=== PATIENT | female | born 1980 | race Caucasian/White ===

== ENCOUNTER 2018-01-17 09:11 | Inpatient (IN) | payer OTHER ==
[2018-01-17 09:21] VITALS: BMI 30.7
[2018-01-17] MEDS ORDERED: ceFAZolin 1 GM in Sodium Chloride 0.9% 100 ML IVPB ONE (09:24)
[2018-01-17] MEDS ORDERED: Oxytocin 30 units/LR 500ML 30 U/500 ML BAG IV ONE (09:42)
[2018-01-17 09:58] VITALS: RESP 18
[2018-01-17 09:59] LABS: BASO % 0.4 % (0.0-2.0); EOS # 0.1 K/uL (0.0-0.7); EOS % 0.5 % (0.0-4.0); HEMOGLOBIN 13.7 g/dL (12.0-16.0); LYMPH # 1.9 K/uL (1.0-4.3); LYMPH % 17.9 % (20.0-40.0); MEAN CELL VOLUME 88.8 fl (81.0-99.0); MEAN CORPUSCULAR HEMOGLOBIN 30.7 pg (27.0-31.0); MEAN CORPUSCULAR HGB CONC 34.5 g/dL (33.0-37.0); MEAN PLATELET VOLUME 8.7 fl (7.2-11.7); MONO # 0.5 K/uL (0.0-0.8); MONO % 4.8 % (0.0-10.0); NEUT # 8.2 K/uL (1.8-7.0); NEUT % 76.4 % (50.0-75.0); NRBC % 0.1 % (0.0-0.0); RBC 4.46 Mil/uL (3.80-5.20); RED CELL DISTRIBUTION WIDTH 13.5 % (11.5-14.5); WHITE BLOOD COUNT 10.8 K/uL (4.8-10.8)
[2018-01-17] MEDS: Lactated Ringer's 1,000 ML IV ONE ×2 (10:13→10:14)
[2018-01-17] MEDS ORDERED: Morphine 1 mg/ml preservative-free Inj(Duramorph) ONE (10:24)
[2018-01-17] MEDS ORDERED: ePHEDrine 50 mg/ml Inj ONE (10:47)
[2018-01-17] MEDS ORDERED: Oxycodone/Acetaminophen 5/325 mg Tab PO PRN (12:13)
[2018-01-17] MEDS ORDERED: Lactated Ringer's 1,000 ML IV SCH (12:15)
[2018-01-17] MEDS: Lactated Ringer's 1,000 ML IV SCH (17:39)
[2018-01-18] MEDS: Oxycodone/Acetaminophen 5/325 mg Tab PO PRN ×5 (01:14→21:35)
[2018-01-18] MEDS: Lactated Ringer's 1,000 ML IV SCH (01:30)
[2018-01-18] MEDS ORDERED: DiphenhydrAMINE 50 mg/ml Inj IVP PRN (02:44)
[2018-01-18] MEDS ORDERED: DiphenhydrAMINE 50 mg/ml Inj ONE (02:53)
[2018-01-18 06:29] LABS: HEMOGLOBIN 12.1 g/dL (12.0-16.0); MEAN CELL VOLUME 89.8 fl (81.0-99.0); MEAN CORPUSCULAR HEMOGLOBIN 30.5 pg (27.0-31.0); RBC 3.96 Mil/uL (3.80-5.20); RED CELL DISTRIBUTION WIDTH 13.5 % (11.5-14.5); WHITE BLOOD COUNT 12.5 K/uL (4.8-10.8)
[2018-01-18] MEDS: Multivitamin With Minerals Tab PO SCH (08:07)
--- NOTE | 2018-01-18 08:55 | OP ---
PROCEDURE DATE: 01/17/18 PREOPERATIVE DIAGNOSIS: Intrauterine at 39 weeks for repeat section. POSTOPERATIVE DIAGNOSIS: Intrauterine at 39 weeks for repeat section. OPERATION PERFORMED: Repeat low flap transverse section via Pfannenstiel skin incision. SURGEON: Rodriguez Swift MD SUBSTATION OPERATOR APPRENTICE: David Casarez DO. He was helpful in delivering the baby, creating exposure, obtaining hemostasis, and closure of the patient. ANESTHESIA: Spinal. ANESTHESIA ADMINISTERED BY: Dr. Lanza. ESTIMATED BLOOD LOSS: 800 mL. URINE OUTPUT: Adams catheter put out approximately 200 mL of clear urine. INTRAVENOUS FLUID INTAKE: The patient received 2100 mL of D5 LR intraoperatively. OPERATIVE FINDINGS: Baby girl, 9 and 9, weighing 3260 gm. Normal uterus, tubes, and ovaries were identified. COMPLICATIONS: There were no complications. DESCRIPTION OF PROCEDURE: After informed consent was obtained, the patient was taken to the operating room where she was given spinal anesthesia. She was then prepped and draped in a normal sterile fashion with the leftward tilt. A Pfannenstiel skin incision was then made with the scalpel and carried down to the underlying layer of fascia. The fascia was nicked in the midline. The fascial incision was then extended laterally with a curved Menchaca scissors. The superior aspect of the fascial incision was then grasped with Stiven clamps, elevated up, and the rectus muscles were dissected off using both sharp and blunt dissection. Attention was then turned to the inferior aspect of the fascial incision, which in a similar fashion was grasped with Stiven clamps, elevated up, and the rectus muscles were dissected off using both sharp and blunt dissection. The rectus muscles were in the midline. The peritoneum identified and entered sharply with the Metzenbaum scissors. The peritoneal incision was then extended superiorly and inferiorly with good visualization of the bladder. The bladder blade was then inserted. The vesicouterine peritoneum was identified, tented up, and entered sharply with the Metzenbaum scissors. The incision was then extended laterally. The bladder flap was created digitally. The bladder blade was then readjusted. A low transverse incision was made with the scalpel. The incision was then extended laterally. The 's head was delivered atraumatically. The nose and mouth were suctioned with DeLee suction trap. The cord was clamped and cut. The was handed off to the waiting pediatricians. The placenta was then removed manually. The uterus was exteriorized and cleared off all clots and debris. The uterine incision was repaired with 0 Vicryl in a running locked fashion. The second layer of the same suture was used to obtain an excellent hemostasis. The uterus was returned to the abdomen. The abdomen was then copiously irrigated. Hemostasis was noted. The gutters were cleared of all clots and debris. The peritoneum was then closed with 2-0 Vicryl in a running fashion. The muscle was reapproximated with 0 Vicryl in an interrupted fashion. The fascia was closed with 0 Vicryl in a running fashion, and the skin was closed with a Rogelio needle. All sponge, lap, needle, and instrument counts were correct x2. The patient was taken to the recovery room in awake and stable condition. Rodriguez Swift MD
[2018-01-18] MEDS ORDERED: Multivitamin With Minerals Tab PO SCH (09:00)
[2018-01-19] MEDS: Oxycodone/Acetaminophen 5/325 mg Tab PO PRN ×5 (01:36→19:41)
--- NOTE | 2018-01-19 08:07 | OBPPN ---
Datetime: 01/19/2018 08:04 PP Pain Prov: Within normal limits PP Nausea Prov: Denies PP Flatus Prov: Yes PP BM Prov: No PP Breasts Prov: Normal PP Heart Prov: Normal PP Lungs Prov: Normal PP Abdomen/Uterus Prov: Normal PP Lochia Prov: Normal PP Vulva/Perineum Prov: Normal PP CVA Tenderness Prov: Normal PP Extremities Prov: Normal PP C/S Incision Prov: Normal PP Progress Prov: Normal PP Impression Prov: Normal progression PP Plan Prov: Continue present management PP Progress Note Prov: She feels good. No BM H/H A: S/P C/S day 2 PLAN: cont post op care Vital Signs Provider PP: Reviewed; Within Normal Limits
[2018-01-19] MEDS: Multivitamin With Minerals Tab PO SCH (08:38)
[2018-01-20] MEDS: Oxycodone/Acetaminophen 5/325 mg Tab PO PRN ×2 (02:47→08:07)
[2018-01-20] MEDS: Multivitamin With Minerals Tab PO SCH (08:06)
[2018-01-20 18:41] VITALS: BP 100/62; PULSE 82; TEMP 98.1; O2SAT 98
--- NOTE | 2018-01-21 09:05 | OBPPN ---
Datetime: 01/20/2018 09:04 PP Pain Prov: Within normal limits PP Nausea Prov: Denies PP Flatus Prov: Yes PP BM Prov: Yes PP Breasts Prov: Normal PP Heart Prov: Normal PP Lungs Prov: Normal PP Abdomen/Uterus Prov: Normal PP Lochia Prov: Normal PP Vulva/Perineum Prov: Normal PP CVA Tenderness Prov: Normal PP Extremities Prov: Normal PP Comments Phys Exam Prov: Abd soft/NT/ND Inc C/D/I No DCT bilat PP Progress Note Prov: POD#3 s/p C/S recovering well D/C home F/U 1wk Vital Signs Provider PP: Reviewed; Within Normal Limits
--- NOTE | 2018-01-21 09:08 | OBDCSUM ---
Datetime: 01/20/2018 13:11 Discharge Instructions, Provider: Routine instructions given Discharge Diagnosis, Provider: Term Delivered Contraception discussed, Prov: Yes
== END 2018-01-20 14:10 | disposition home or self-care (01) | DRG 766 ==
LOC: H.L&D 09:28 → H.OB/GYN 14:30
PROVIDERS: ADMIT Obstetrics & Gynecology Gynecology; ATTEND Obstetrics & Gynecology Gynecology
PROC: 10D00Z1 Extraction of Products of Conception, Low, Open Approach (ICD-10-PCS; principal; 2018-01-17)
PROC: 4A1HXCZ Monitoring of Products of Conception, Cardiac Rate, External Approach (ICD-10-PCS; 2018-01-17)
DX: O34.211 Maternal care for low transverse scar from previous cesarean delivery (principal); Z37.0 Single live birth; N85.8 Other specified noninflammatory disorders of uterus; Z3A.39 39 weeks gestation of pregnancy